=== PATIENT | male | born 1970 | race African-American/Black ===

== ENCOUNTER 2017-06-28 09:49 | Emergency (ER) | payer MEDICAID, SELFPAY ==
[2017-06-28 09:50] VITALS: BP 157/92; PULSE 77; RESP 22; TEMP 36.2; O2SAT 99; BMI 29.5
--- NOTE | 2017-06-28 10:16 | ED.VISSUMM ---
- ER Visit Summary Date of Service: 06/28/17 Chief Complaint: Chronic low back pain History of Present Illness: The patient is a 47 M history of chronic low back pain. He is also previously had a stroke with right-sided weakness. He has been seen in pain management in the past. He also has known cardiac stents. Patient states that his chronic back pain is flared up and he is having pain in his right lower back down the right leg. He has chronic weakness in this leg from a prior stroke. That is not new or change. He denies any bowel or bladder incontinence. He denies any fever. He denies any recent falls or trauma. He is just looking to get something for pain. Physical Examination: Middle-aged male. Vital signs are stable afebrile. HEENT exam unremarkable neck nontender. Lungs clear to auscultation. Heart regular rate and rhythm no murmur. Abdomen is soft and nontender. Bowel sounds no peritoneal signs. Extremities he does have right lower extremity weakness. Chronic. He has decreased sensation in his right thigh which is again chronic. Left lower extremity is unremarkable. Back he has tenderness of his lower lumbar spine and right SI iliac crest region. There is no ecchymosis or bruising no signs of trauma. No redness or warmth. Neurologically is chronic weakness in his right leg. He does have increasing pain with right leg raise. He does not have a cauda equina. He has chronic saddle anesthesia which is not changed or new. He does have dorsi and plantar flexion of the right foot. Test Results: None Emergency Department Course and Treatment: Understands I cannot write him for chronic narcotic prescriptions he will be given IM injection of Toradol and 1 oxycodone here for pain. He can follow-up with primary care physician in [place] for chronic pain management. He has a call out to a pain management physician in [place]. He did see Dr. Chavez here at [facility] were explained and there was little that he had to offer him. According to the patient's account. Treatment Plan: Discharged to home follow-up with pain management Disposition: Discharge Impression: Acute on chronic low back pain. History degenerative disc disease. History of diabetes and prior stroke. This note was generated with [employer] dictation software. It may contain incorrect words, spelling, and punctuation that were not noted in review of the chart prior to signing ED Disposition - Plan for ED Patient: Chief Complaint: Back Referrals: [facility] Doctor,Out of [Primary Care Provider] -
--- NOTE | 2017-06-28 10:20 | ED.DCSUM_ITS ---
- ER Visit Summary Date of Service: 06/28/17 Chief Complaint: Chronic low back pain History of Present Illness: The patient is a 47 M history of chronic low back pain. He is also previously had a stroke with right-sided weakness. He has been seen in pain management in the past. He also has known cardiac stents. Patient states that his chronic back pain is flared up and he is having pain in his right lower back down the right leg. He has chronic weakness in this leg from a prior stroke. That is not new or change. He denies any bowel or bladder incontinence. He denies any fever. He denies any recent falls or trauma. He is just looking to get something for pain. Physical Examination: Middle-aged male. Vital signs are stable afebrile. HEENT exam unremarkable neck nontender. Lungs clear to auscultation. Heart regular rate and rhythm no murmur. Abdomen is soft and nontender. Bowel sounds no peritoneal signs. Extremities he does have right lower extremity weakness. Chronic. He has decreased sensation in his right thigh which is again chronic. Left lower extremity is unremarkable. Back he has tenderness of his lower lumbar spine and right SI iliac crest region. There is no ecchymosis or bruising no signs of trauma. No redness or warmth. Neurologically is chronic weakness in his right leg. He does have increasing pain with right leg raise. He does not have a cauda equina. He has chronic saddle anesthesia which is not changed or new. He does have dorsi and plantar flexion of the right foot. Test Results: None Emergency Department Course and Treatment: Understands I cannot write him for chronic narcotic prescriptions he will be given IM injection of Toradol and 1 oxycodone here for pain. He can follow-up with primary care physician in [place] for chronic pain management. He has a call out to a pain management physician in [place]. He did see Dr. Chavez here at [facility] were explained and there was little that he had to offer him. According to the patient's account. Treatment Plan: Discharged to home follow-up with pain management Disposition: Discharge Impression: Acute on chronic low back pain. History degenerative disc disease. History of diabetes and prior stroke. This note was generated with [employer] dictation software. It may contain incorrect words, spelling, and punctuation that were not noted in review of the chart prior to signing ED Disposition - Plan for ED Patient: Chief Complaint: Back Referrals: [facility] Doctor,Out of [Primary Care Provider] -
--- NOTE | 2017-06-28 10:20 | ED.DEP ---
ED Disposition - Plan for ED Patient: Disposition: Home or Assisted Living Chief Complaint: Back Instructions: ED Neck Back Pain General, ED Bursitis Referrals: [facility],Out of [Primary Care Provider] - As soon as possible Shawn Valadez, [STAFF PHYSICIAN] - 1-2 Weeks Additional Instructions: Follow up with Dr. Valadez of orthopedics to be evaluated for your right knee bursitis. Follow-up your pain management doctor.
[2017-06-28] MEDS: Ketorolac 60 MG/2 ML Vial IM (10:33)
[2017-06-28] MEDS: oxyCODONE 5 MG Tablet 10 MG PO (10:33)
[2017-06-28 11:01] VITALS: BP 147/90; PULSE 87; RESP 16
== END 2017-06-28 11:02 | disposition home or self-care (01) ==
LOC: ED 10:34
PROVIDERS: Emergency Provider Emergency Medicine
DX: G89.29 Other chronic pain (principal); M54.5 Low back pain; R19.7 Diarrhea, unspecified; E11.9 Type 2 diabetes mellitus without complications; E78.00 Pure hypercholesterolemia, unspecified; I25.10 Atherosclerotic heart disease of native coronary artery without angina pectoris; I25.2 Old myocardial infarction; Z86.73 Personal history of transient ischemic attack (TIA), and cerebral infarction without residual deficits
CPT/HCPCS: 99283